=== PATIENT | female | born 1955 | race Caucasian/White ===

== ENCOUNTER → 2017-03-29 | Outpatient (CLI) | payer BC ==
--- NOTE | 2017-03-29 17:40 | Diagnostic Imaging Report ---
History: Low back pain Comparison studies: None Technique: Sagittal, coronal and axial T2 , sagittal T1 and IR, axial spin density oblique. Intravenous contrast: None Findings: Number of lumbar vertebral bodies:5 Alignment: Mild left curvature at L4-5 is probably positional. 8mm (1) anterolisthesis of L5 on S1. No scoliosis. Soft tissues: No T2 hyperintense inflammatory changes. Paraspinal muscles: Fatty infiltrated from L2 through S1. Lower thoracic cord:Normal in signal and morphology. The tip of the conus is at T12-L1. Cauda equina: No masses. No arachnoiditis. Vertebrae: Normal in height and signal intensity. No compression fractures, infection or neoplasm. Degenerative changes: T12-L1: Mildly degenerated disc. No Modic type I changes along the endplates. A 6 mm left central/subarticular disc protrusion indents the thecal sac and if clinically relevant would be associated with left L1 radicular symptoms. Patent foramina. L1-L2: Normal disc. Symmetric disc bulge. Patent spinal canal and foramina. No disc herniation.. L2-L3: No abnormalities. L3-L4: Mild right foraminal stenosis is due to an asymmetric disc bulge and mild right facet arthrosis. Patent spinal canal and left foramen. No disc herniation. L4-L5: Moderate bilateral facet arthrosis without synovitis. A superimposed effusion on the right widening of the joint space. Patent spinal canal and foramina. No disc herniation. L5-S1: Moderately degenerated disc but no Modic type I changes along the endplates. 8 mm (grade 1) anterolisthesis of L5 on S1 and moderate bilateral facet arthrosis without cellulitis results in foraminal stenosis, severe left, mild right. Patent spinal canal. No disc herniation. Partially visualized sacrum: No signal abnormalities. IMPRESSION: 1. Focal 6 mm left central/subarticular disc protrusion at T12-L1 is relevant if associated with left L1 radicular symptoms. 2. Moderate bilateral facet arthrosis without synovitis at L4-5. 3. Severe left degenerative foraminal stenosis at L5-S1 is due to grade 1 degenerative spondylolisthesis of L5 on S1 and bilateral facet arthrosis. 4. Otherwise, no significant abnormalities. Signed by: Dr. Chetan Sears M.D. on 03/29/2017 5:37 PM
== END ==
LOC: MRI 15:53
PROVIDERS: ATTEND Family Medicine
DX: S39.012D Strain of muscle, fascia and tendon of lower back, subsequent encounter (principal); M54.40 Lumbago with sciatica, unspecified side
CPT/HCPCS: 72148

== ENCOUNTER → 2017-09-23 | Outpatient (CLI) | payer BC ==
--- NOTE | 2017-09-24 08:16 | Diagnostic Imaging Report ---
TECHNIQUE: Magnetic resonance imaging of the PELVIS was performed WITHOUT injected contrast using standard departmental protocols. HISTORY: Hip and back pain COMPARISON: None. FINDINGS: Bone and bone marrow: Sacral insufficiency fracture greater on the left side with bone marrow edema and T1 hypointense fracture line. Mild edema within the inferior right sacrum. Articular cartilage: Partial thickness cartilage loss involving the sacroiliac joints and hip joints. Soft tissues: Gluteal tendons intact. Left trochanteric bursitis. IMPRESSION: Bilateral sacral insufficiency fracture, greater on the left. Left trochanteric bursitis. Signed by: Dr. Desmond Crabtree M.D. on 09/24/2017 8:13 AM
--- NOTE | 2017-09-24 08:25 | Diagnostic Imaging Report ---
History: Fall Comparison studies: MRI lumbar spine 03/29/2017 Technique: Sagittal, coronal and axial T2 , sagittal T1 and IR, axial spin density oblique. Intravenous contrast: None Findings: Number of lumbar vertebral bodies:5 Alignment: Mild levoscoliosis centered at L2-3, stable.Grade 1 anterolisthesis (8 mm) of L5 over S1 with bilateral. Soft tissues: Presacral edematous changes. Paraspinal muscles: Fatty infiltration secondary to mild atrophy. Lower thoracic cord:Normal in signal and morphology. The tip of the conus is at T12-L1. Cauda equina: No masses. No arachnoiditis. Vertebrae: Normal in height and signal intensity. No compression fractures, infection or neoplasm. Degenerative changes: T12-L1: Disc degeneration with loss of T2 signal and decreased intervertebral space. Diffuse disc bulge with superimposed left central/subarticular disc protrusion narrows the left subarticular recesses and results in mild narrowing of the canal. 1 cm perineural cyst in the left foramen is foramen displaced the T12 exiting nerve root superiorly. Patent right foramen. L1-L2: Normal disc. Symmetric disc bulge. Patent spinal canal and foramina. No disc herniation.. L2-L3: No abnormalities. L3-L4: Disc degeneration with loss of T2 signal. Asymmetric right disc bulge results in mild narrowing of the right subarticular recess with patent canal and mild right foraminal narrowing, stable. L4-L5: Disc degeneration with loss of T2 signal. Diffuse disc bulge, moderate facet hypertrophy results in no significant canal stenosis or foraminal narrowing. Trace of fluid at the right facet joint. L5-S1: Moderately degenerated disc. 8 mm (grade 1) anterolisthesis of L5 on S1 and moderate bilateral facet arthrosis results in foraminal stenosis, severe left, mild right. Patent spinal canal. No disc herniation. Partially visualized sacrum: Edema signal at the bilateral left more than right sacral ala, and third sacral vertebra. Adjacent soft tissue edematous changes. Partially visualized right S2 perineural cyst measuring 2 cm in CC dimension. IMPRESSION: 1. Bilateral left more than right sacral ala and S2 acute fractures with associated soft tissue edematous changes, likely secondary to insufficiency. 2. The remaining degenerative changes are stable compared to the previous examination. Signed by: DR Rashid Andrews M.D. on 09/24/2017 12:08 PM
== END ==
LOC: MRI 15:33
PROVIDERS: ATTEND Family Medicine
DX: M47.26 Other spondylosis with radiculopathy, lumbar region (principal); M16.52 Unilateral post-traumatic osteoarthritis, left hip
CPT/HCPCS: 72148